=== PATIENT | female | born 1945 | race Two or more races ===

== ENCOUNTER 2024-12-20 18:50 | Inpatient (IN) | payer MEDICARE, MEDICAID ==
[~2024-12-20] VITALS: Ht 157.5 cm; Wt 91.4 kg
[2024-12-20] MEDS: SODIUM CHLORIDE 0.9% 250 ML IV ONE (20:00)
[2024-12-20 20:09] LABS: Hematocrit 24.0 % (36.0-46.0); Hemoglobin 8.2 g/dL (12.2-16.2); Mean Corpuscular Hemoglobin 32.2 pg (28.0-32.0); Mean Corpuscular Volume 94.7 fL (80.0-100.0); Nucleated Red Blood Cells % 0.1 %
[2024-12-20 20:26] LABS: Albumin 3.6 g/dL (3.2-4.8); Alkaline Phosphatase 99 U/L (46-116); Anion Gap 11 (5-15); BUN/Creatinine Ratio 15.2 (10.0-20.0); Blood Urea Nitrogen 22 mg/dL (9-23); Carbon Dioxide 28 mmol/L (20-31); Lipase 48 U/L (12-53); Total Protein 7.9 g/dL (5.7-8.2)
[2024-12-20 20:27] LABS: Bilirubin, Total 0.7 mg/dL (0.2-1.0)
[2024-12-20 21:08] LABS: Urine Protein, UAD 1+ (Negative)
[2024-12-20 21:11] LABS: Alanine Aminotransferase < 9 U/L (7-40); Calcium 8.4 mg/dL (8.7-10.4); Chloride 94 mmol/L (98-107); Glucose 121 mg/dL (74-106); Potassium 3.4 mmol/L (3.5-5.1); Sodium 133 mmol/L (136-145)
--- NOTE | 2024-12-20 21:54 | DVH ---
Exam: CT CT AB PEL WO CON-NO ORAL OR IV History: ABD PX Comparison Study: None Technique: Multidetector spiral CT of the abdomen was performed from lung bases to pubic symphysis. Imaging was performed without IV contrast. Axial, coronal and sagittal multiplanar reformats were ob tained from the axial data set by the technologist. Radiation Dose : 1. Abdomen/Pelvis: CTDIvol 20.52 mGy, DLP 20.52 mGy*cm. Findings: Evaluation of solid organs is limited due to lack of intravenous contrast use. Lung Bases: No acute or significant lung base finding. Heart size is the upper limit of normal. Smal l left pleural effusion. Liver: The liver is normal in size. No focal lesions. Gallbladder and Biliary Tree: Gallbladder is surgically absent. No biliary ductal dilation. Spleen: Unremarkable Pancreas: The pancreas is grossly normal in appearance. Adrenal Glands: Unremarkable Kidneys: No calculi or hydronephrosis. Bladder: Grossly unremarkable for degree of distention. Bowel: The stomach is grossly normal in appearance. Small bowel and colon are normal in caliber and d istribution. The appendix is not visualized; however, no secondary findings of acute appendicitis id entified. 7 x 6.7 cm loculated fluid collection in the central mesentery /abdomen. Ascites: Absent Lymphadenopathy: No mesenteric, retroperitoneal or periportal lymphadenopathy. Abdominal Wall and Mesentery: Retroperitoneal lipomatosis. Fat containing ventral hernia. Vasculature: Advanced calcific atherosclerotic plaques. Pelvic Organs: Unremarkable Musculoskeletal: No aggressive focal bony lesions, acute fractures or dislocation. Partially imaged l eft femoral greta and dynamic compression screw. IMPRESSION: 1. Loculated fluid collection in the central abdomen/mesentery, probably sequela of previous infectio n. Recommend MRI. Surgical consultation is needed. Radiation optimization: All CT scans at this facility use at least one of these dose optimization alvaro hniques: automated exposure control mA and/or kV adjustment per patient size (includes targeted exam s where dose is matched to clinical indication) or iterative reconstruction.
--- NOTE | 2024-12-20 22:12 | ED.PDOC ---
GI ASSESSMENT HPI Comments 79-YEAR-OLD FEMALE PRESENTS TO THE ED WITH HER SON C/C OF ABD PAIN/DISTENTION X2 WEEKS. MOM STATES PATIENT HAS BEEN SEEN IN THE ER BEFORE HAD A CT WITH NO ABNORMAL FINDINGS. SON STATES PAIN HAS BEEN PROGRESSIVELY GETTING WORSE OVER THE PAST SEVERAL DAYS ALONG WITH ABDOMINAL FULLNESS AND BLOATING. PT REPORTS NAUSEA DENIES ANY EMESIS. PT REPORTS SHE HAD A BM YESTERDAY- NORMAL IN CONSISTENCY DENIES ANY BLOOD IN STOOL. REPORTS NO KNOWN FEVERS, CHILLS, CHEST PAIN, SHORTNESS OF BREATH, DIZZINESS, DIFFICULTY BREATHING. Chief Complaint: Abdominal Pain Time Seen by MD: 19:39 Reviewed Notes: Nurses Notes, Medications, Allergies Allergies: Coded Allergies: NO KNOWN ALLERGIES (Unverified , 12/21/24) Information Source: Patient Mode of Arrival: Ambulatory Past Medical History PAST MEDICAL HISTORY: Denies Surgical History: Denies all surgeries PLAYGROUND DIRECTOR History: No Pertinent PLAYGROUND DIRECTOR History Family History Family History: Reviewed,noncontributory to illness Social History Smoker: Non-Smoker Alcohol: Denies ETOH Use Drugs: Denies Drug Use All Other Systems: Reviewed and Negative (SEE HPI) Physical Exam General Appearance: No Apparent Distress, Normal HEENT: Pharynx Normal Neck: Full Range of Motion, Non-Tender Respiratory: Lungs Clear, No Respiratory Distress, Normal Breath Sounds Cardiovascular: No Edema, No JVD, No Murmur, No Gallop, Normal Peripheral Pulses, Regular Rate/Rhythm Breast Exam: Deferred Gastrointestinal: Diffuse (TENDERNESS ), Distended, No Organomegaly, No Pulsatile Mass, Soft Genitalia: Deferred Pelvic: Deferred Rectal: Deferred Extremities: Normal capillary refill, Normal range of motion, No pedal edema Musculoskeletal : Apperance: Normal Neurologic: Alert, No Motor Deficits, Normal Affect, Normal Mood, No Sensory Deficits Cerebellar Function: Normal Reflexes: NOT DONE Skin: Dry, Normal Color, Warm Lymphatic: No Adenopathy Was a procedure done? Was a procedure done?: No GI differential Dx Differential Diagnosis: Constipation, Diverticular disease, Ectopic , Gastritis/PUD, Mass X-Ray, Labs, Meds, VS Vital Signs Date Time Temp Pulse Resp B/P (MAP) Pulse Ox O2 Delivery O2 Flow Rate FiO2 12/20/24 22:30 84 18 154/82 12/20/24 21:49 98.0 70 18 148/68 (94) 96 98.0 12/20/24 18:51 97.5 75 22 119/51 91 97.5 Lab Test 12/20/24 22:55 12/20/24 20:26 12/20/24 19:59 Range/Units Lactic Acid Level 1.0 0.4-2.0 mmol/L Urine Color Light-yellow Yellow Urine Clarity Clear Clear Urine pH 6.5 5.0-9.0 Urine Specific [place] 1.009 1.001-1.035 Urine Protein 1+ H Negative Urine Ketones Negative Negative Urine Blood Negative Negative /uL Urine Nitrite Negative Negative Urine Bilirubin Negative Negative Urine Urobilinogen 2 H Negative mg/dL Urine Leukocyte Esterase 2+ Negative /uL Urine RBC 2 0 - 4 /hpf Urine Microscopic WBC 5 0-5 /HPF Urine Squamous Epithelial Cells Few <5 /hpf Urine Bacteria Few H None Seen /hpf Urine Glucose Normal Normal mg/dL White Blood Count 6.8 4.4-10.8 10^3/uL Red Blood Count 2.54 L 4.0-5.20 10^6/uL Hemoglobin 8.2 L 12.2-16.2 g/dL Hematocrit 24.0 L 36.0-46.0 % Mean Corpuscular Volume 94.7 80.0-100.0 fL Mean Corpuscular Hemoglobin 32.2 H 28.0-32.0 pg Mean Corpuscular Hemoglobin Concent 34.0 32.0-36.0 g/dL Red Cell Distribution Width 17.0 H 11.8-14.3 % Platelet Count 186 140-450 10^3/uL Mean Platelet Volume 9.6 6.9-10.8 fL Neutrophils (%) (Auto) 77.0 37.0-80.0 % Lymphocytes (%) (Auto) 10.7 10.0-50.0 % Monocytes (%) (Auto) 9.2 0.0-12.0 % Eosinophils (%) (Auto) 2.4 0.0-7.0 % Basophils (%) (Auto) 0.7 0.0-2.0 % Neutrophils # (Auto) 5.3 1.6-8.6 10 ^3/uL Lymphocytes # (Auto) 0.7 0.4-5.4 10 ^3/uL Monocytes # (Auto) 0.6 0-1.3 10 ^3/uL Eosinophils # (Auto) 0.2 0-0.8 10 ^3/uL Basophils # (Auto) 0 0-0.2 10 ^3/uL Nucleated Red Blood Cells 0.1 % Sodium Level 133 L 136-145 mmol/L Potassium Level 3.4 L 3.5-5.1 mmol/L Chloride Level 94 L 98-107 mmol/L Carbon Dioxide Level 28 20-31 mmol/L Anion Gap 11 5-15 Blood Urea Nitrogen 22 9-23 mg/dL Creatinine 1.45 H 0.550-1.02 mg/dL Glomerular Filtration Rate Calc 36 >90 mL/min BUN/Creatinine Ratio 15.2 10.0-20.0 Serum Glucose 121 H 74-106 mg/dL Calcium Level 8.4 L 8.7-10.4 mg/dL Total Bilirubin 0.7 0.2-1.0 mg/dL Aspartate Amino Transferase (AST) 12 L 13-40 U/L Alanine Aminotransferase (ALT) < 9 7-40 U/L Alkaline Phosphatase 99 46-116 U/L Total Protein 7.9 5.7-8.2 g/dL Albumin 3.6 3.2-4.8 g/dL Lipase 48 12-53 U/L Current Medications Medications (Trade) Dose Ordered Sig/Juan Francisco Route Start Time Stop Time Status Last Admin Sodium Chloride 250 ml @ 1,000 mls/hr Q15M ONCE IV 12/20/24 20:00 12/20/24 20:14 DC 12/20/24 20:00 Ondansetron HCl (Zofran) 4 mg ONCE ONCE IV 12/20/24 20:00 12/20/24 20:01 DC 12/20/24 22:30 Ciprofloxacin 200 ml @ 200 mls/hr ONCE ONCE IV 12/20/24 22:30 12/20/24 23:29 DC 12/20/24 22:30 Metronidazole 100 ml @ 100 mls/hr ONCE ONCE IV 12/20/24 22:30 12/20/24 23:29 DC 12/20/24 22:30 Morphine Sulfate 2 mg ONCE ONCE IV 12/20/24 22:30 12/20/24 22:31 DC 12/20/24 22:30 X-Ray, Labs, Meds, VS Comment IMPRESSION: 1. Loculated fluid collection in the central abdomen/mesentery, probably sequela of previous infection. Recommend MRI. Surgical consultation is nee Surgical consult with Dr. Bowman, per Dr. Gasca, admit and he will consult in a.m. patient is stable for admission at this time. CBC CMP within normal limitS, LACTIC ACID 1.0. We will start patient on Cipro and Flagyl, pain and nausea control, MRI in the morning for further evaluation of mesentery fluid, admission placed for hospitalist. Time of 1ST Reevaluation: 19:39 Reevaluation 1ST: Unchanged Time of 2ND Reevaluation: 22:05 Reevaluation 2ND: Unchanged Patient Education/Counseling: Diagnosis, Treatment, Prognosis, Need For Follow Up Family Education/Counseling: Diagnosis, Treatment, Prognosis, Need For Follow Up SEPSIS Sepsis Screen Date sepsis recognized/suspect: Dec 20, 2024 Time Sepsis recognized/suspect: 1853 Recent Procedure: No On Antibiotic Therapy: No Respiratory Rate >20: No Heart Rate >90: No Temp<36 C (96.8 F) or >38.3 C: No SBP <90 or MAP <65 mmHG: No New Acute Mental Status Change: No Is the patient on CPAP, BIPAP,: No Physician Orders Ct Ab Pel Wo Con-No Oral Or Iv (12/20/24 19:45) Heplock Iv (12/20/24 ) * Surgical Consult (12/20/24 ) Blood Culture (12/20/24 22:16) Mri Abd & Plevis W/Wo Cont (12/20/24 22:52) Vital Signs Date Time Temp Pulse Resp B/P (MAP) Pulse Ox O2 Delivery O2 Flow Rate FiO2 12/20/24 22:30 84 18 154/82 12/20/24 21:49 98.0 70 18 148/68 (94) 96 98.0 12/20/24 18:51 97.5 75 22 119/51 91 97.5 Laboratory Tests Test 12/20/24 19:59 12/20/24 22:55 White Blood Count 6.8 10^3/uL (4.4-10.8) Lactic Acid Level 1.0 mmol/L (0.4-2.0) Medications Medications Dose Ordered Sig/Juan Francisco Route Start Time Stop Time Status Last Admin Dose Admin Ciprofloxacin 200 ml @ 200 mls/hr ONCE ONCE IV 12/20/24 22:30 12/20/24 23:29 DC 12/20/24 22:30 Metronidazole 100 ml @ 100 mls/hr ONCE ONCE IV 12/20/24 22:30 12/20/24 23:29 DC 12/20/24 22:30 Morphine Sulfate 2 mg ONCE ONCE IV 12/20/24 22:30 12/20/24 22:31 DC 12/20/24 22:30 Ondansetron HCl 4 mg ONCE ONCE IV 12/20/24 20:00 12/20/24 20:01 DC 12/20/24 22:30 Sodium Chloride 250 ml @ 1,000 mls/hr Q15M ONCE IV 12/20/24 20:00 12/20/24 20:14 [place] 12/20/24 20:00 Departure 1 Departure Time of Disposition: 22:05 Impression: Primary Impression: Nonspecific mesenteric adenitis Additional Impressions: Intraabdominal fluid collection UTI (urinary tract infection) Qualified Codes: N30.00 - Acute cystitis without hematuria Disposition: 04 [facility] Condition: Stable Discharged With: Relative Critical Care Note Critical Care Time?: No Stability Stability form required: SHWETA Pope Dec 20, 2024 22:12
[2024-12-20] MEDS: CIPROFLOXACIN 400MG/200ML 200 ML IV ONE (22:30)
[2024-12-20] MEDS: MORPHINE SULFATE INJ 2 MG/ml SYRG IV ONE (22:30)
[2024-12-20] MEDS: ONDANSETRON HCL 4 MG/2 ML VIAL IV ONE (22:30)
[2024-12-21] VITALS (12 sets, daily range): BP systolic 133–166; BP diastolic 56–86; PULSE 61–80; RESP 10–20; TEMP 97.5–98.4; O2SAT 95–100
[2024-12-21] MEDS ORDERED: DOCUSATE SOD 100 MG CAP PO PRN (03:00)
[2024-12-21] MEDS: POTASSIUM EFFERVESENT TAB 25 MEQ GT ONE (04:23)
[2024-12-21 04:48] LABS: Hemoglobin 8.0 g/dL (12.2-16.2); Mean Corpuscular Volume 94.1 fL (80.0-100.0)
[2024-12-21 04:53] LABS: Hematocrit 23.4 % (36.0-46.0); Mean Corpuscular Hemoglobin 32.3 pg (28.0-32.0); Nucleated Red Blood Cells % 0.3 %
[2024-12-21] MEDS: ONDANSETRON HCL 4 MG/2 ML VIAL IV PRN (04:54)
[2024-12-21] MEDS: MORPHINE SULFATE INJ 2 MG/ml SYRG IV PRN (04:55)
[2024-12-21 04:56] LABS: Alkaline Phosphatase 97 U/L (46-116); Anion Gap 12 (5-15); BUN/Creatinine Ratio 13.9 (10.0-20.0); Blood Urea Nitrogen 19 mg/dL (9-23); Carbon Dioxide 27 mmol/L (20-31); Glucose 102 mg/dL (74-106); Total Protein 7.8 g/dL (5.7-8.2)
[2024-12-21 04:57] LABS: Albumin 3.6 g/dL (3.2-4.8); Bilirubin, Total 0.6 mg/dL (0.2-1.0)
[2024-12-21 05:13] LABS: Alanine Aminotransferase < 9 U/L (7-40); Calcium 8.6 mg/dL (8.7-10.4); Chloride 96 mmol/L (98-107); Potassium 3.3 mmol/L (3.5-5.1); Sodium 135 mmol/L (136-145)
[2024-12-21] MEDS ORDERED: GLIP5TAB21 PO (07:22)
[2024-12-21] MEDS ORDERED: INSLISPI SC (07:22)
[2024-12-21] MEDS ORDERED: CALC1TAB92 PO (07:22)
[2024-12-21] MEDS ORDERED: FAMO20TA10 PO (07:22)
[2024-12-21] MEDS ORDERED: METO-289 PO (07:22)
[2024-12-21] MEDS ORDERED: BENA40TA71 PO (07:22)
[2024-12-21] MEDS ORDERED: POTA-36 PO (07:22)
[2024-12-21] MEDS ORDERED: OMEG1205 PO (07:22)
[2024-12-21] MEDS ORDERED: FURO20TA3 PO (07:22)
[2024-12-21] MEDS ORDERED: DILT-29 PO (07:22)
[2024-12-21] MEDS: LACTATED RINGER'S 1,000 ML IV SCH (07:28)
--- NOTE | 2024-12-21 08:18 | DVHHPRES ---
History of Present Illness Resident Creating Document: NATA NASH RESIDENT History of Present Illness Ms. Valenzuela, a 79-year-old female presents to the ED with her son for abdominal pain and distention for 2 weeks, which has progressively worsened over the past several days along with abdominal fullness and bloating. The pain is reported at 8/10 in intensity, radiating to the back and increased with walking and movement, and decreases with rest. She reports nausea but denies vomiting, fever, chills, chest pain, dizziness. He also reports shortness of breath, dizziness, intentional weight loss of 23 lb use since the last several months. She had a normal bowel movement on without blood is normally constipated.. The patient was previously evaluated in the ER with a CT scan that showed no abnormalities. She arrived ambulatory and provided history with assistance from her son. Past Medical History: Unknown, based on chart review, DJD, osteoarthritis, essential hypertension, atrial fibrillation, COPD, diabetes mellitus, venous insufficiency. 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 comes from home lives with family/son. Home Medications: Acetaminophen Extra Strength 500 mg tab, Lidocaine 5% patch, Benazepril HCl 40 mg tab, Hydrocodone/Acetaminophen 5-325 mg tab, Ondansetron ODT 4 mg tablets, Triamterene 37.5 mg/HCTZ 25 mg cap, Dilt-XR 120 mg cap, Doxycycline Hyclate 100 mg cap, Benzonatate 200 mg cap, Albuterol Sulfate HFA 108 mcg/act inhaler, Promethazine DM syrup, Xarelto 20 mg tab, Metformin HCl 1000 mg tab. Review of Systems Constitutional: Yes: Weakness; No: Fever, Chills, Sweats, Malaise, Other Eyes: No: Pain, Vision change, Conjunctivae inflammation, Eyelid inflammation, Other, Redness ENT: No: Ear pain, Ear discharge, Nose pain, Nose discharge, Nose congestion, Mouth pain, Mouth swelling, Throat pain, Throat swelling, Other Respiratory: Shortness of breath; No: Cough, Dry, SOB with excertion, Wheezing, Hemoptysis, Pleuritic Pain, Sputum, Wheezing, Other Cardiovascular: No: Chest Pain, Palpitations, Orthopnea, Paroxysmal Noc. Dyspnea, Edema, Lt Headedness, Other Gastrointestinal: Abdominal Pain, Constipation Genitourinary: No Dysuria, No Frequency, No Incontinence, No Hematuria, No Retention, No Other Musculoskeletal: No: other, neck pain, shoulder pain, arm pain, back pain, hand pain, leg pain, foot pain Skin: No: Rash, Lesions, Jaundice, Bruising, Other Neurological: No: Weakness, Numbness, Incoordination, Change in speech, Confu valentin, Seizures, Other Allergies: Coded Allergies: NO KNOWN ALLERGIES (Unverified , 12/21/24) Medications Current Medications Medications Dose Ordered Sig/Juan Francisco Route Start Time Stop Time Status Last Admin Dose Admin Ondansetron HCl 4 mg Q4HP PRN IV 12/21/24 03:00 12/21/24 04:54 4 MG Docusate Sodium 100 mg BIDPRN PRN PO 12/21/24 03:00 Morphine Sulfate 2 mg Q4HPRN PRN IV 12/21/24 03:00 12/21/24 04:55 2 MG Lactated Ringer's 1,000 ml @ 75 mls/hr [id number] IV 12/21/24 07:00 12/21/24 07:28 75 MLS/HR Exam Vital Signs Vital Signs Date Time Temp Pulse Resp B/P (MAP) Pulse Ox O2 Delivery O2 Flow Rate FiO2 12/21/24 07:30 98.1 68 18 151/52 (85) 96 98.1 12/21/24 07:30 Nasal Cannula* 3 32 Exam General: Patient alert and oriented in person, place and time. Patient following commands. In moderate distress HEENT: Normocephalic, atraumatic, moist mucous membranes Respiratory/pulmonary: Clear lungs bilaterally, vesicular murmurs present in almost all lung alfonso, no associated crackles or wheezes. Cardiovascular: Normal heart sounds S1 and S2 with no associated murmurs Abdomen: Abdominal distention, diffuse abdominal tenderness, normal bowel sounds Extremities: There is no peripheral edema present at the lower extremities. Peripheral Pulses: 3+ Radial (R). 3+ Radial (L). 3+ Dorsalis pedis (R). 3+ Dorsalis pedis(L) Skin: No rashes or pruritus, there is no sacral edema present at this time. Neurological: Intact cranial nerves with no focal neurologic deficits Psych/mood: Depressed, crying Labs/Xrays Labs Test 12/21/24 03:47 12/20/24 22:55 12/20/24 20:26 12/20/24 19:59 Range/Units White Blood Count 5.6 4.4-10.8 10^3/uL Red Blood Count 2.48 L 4.0-5.20 10^6/uL Hemoglobin 8.0 L 12.2-16.2 g/dL Hematocrit 23.4 L 36.0-46.0 % Mean Corpuscular Volume 94.1 80.0-100.0 fL Mean Corpuscular Hemoglobin 32.3 H 28.0-32.0 pg Mean Corpuscular Hemoglobin Concent 34.3 32.0-36.0 g/dL Red Cell Distribution Width 16.8 H 11.8-14.3 % Platelet Count 170 140-450 10^3/uL Mean Platelet Volume 9.6 6.9-10.8 fL Neutrophils (%) (Auto) 70.9 37.0-80.0 % Lymphocytes (%) (Auto) 16.5 10.0-50.0 % Monocytes (%) (Auto) 8.3 0.0-12.0 % Eosinophils (%) (Auto) 3.6 0.0-7.0 % Basophils (%) (Auto) 0.7 0.0-2.0 % Neutrophils # (Auto) 3.9 1.6-8.6 10 ^3/uL Lymphocytes # (Auto) 0.9 0.4-5.4 10 ^3/uL Monocytes # (Auto) 0.5 0-1.3 10 ^3/uL Eosinophils # (Auto) 0.2 0-0.8 10 ^3/uL Basophils # (Auto) 0 0-0.2 10 ^3/uL Nucleated Red Blood Cells 0.3 % Sodium Level 135 L 136-145 mmol/L Potassium Level 3.3 L 3.5-5.1 mmol/L Chloride Level 96 L 98-107 mmol/L Carbon Dioxide Level 27 20-31 mmol/L Anion Gap 12 5-15 Blood Urea Nitrogen 19 9-23 mg/dL Creatinine 1.37 H 0.550-1.02 mg/dL Glomerular Filtration Rate Calc 39 >90 mL/min BUN/Creatinine Ratio 13.9 10.0-20.0 Serum Glucose 102 74-106 mg/dL Calcium Level 8.6 L 8.7-10.4 mg/dL Total Bilirubin 0.6 0.2-1.0 mg/dL Aspartate Amino Transferase (AST) 11 L 13-40 U/L Alanine Aminotransferase (ALT) < 9 7-40 U/L Alkaline Phosphatase 97 46-116 U/L Total Protein 7.8 5.7-8.2 g/dL Albumin 3.6 3.2-4.8 g/dL Lactic Acid Level 1.0 0.4-2.0 mmol/L Urine Color Light-yellow Yellow Urine Clarity Clear Clear Urine pH 6.5 5.0-9.0 Urine Specific [place] 1.009 1.001-1.035 Urine Protein 1+ H Negative Urine Ketones Negative Negative Urine Blood Negative Negative /uL Urine Nitrite Negative Negative Urine Bilirubin Negative Negative Urine Urobilinogen 2 H Negative mg/dL Urine Leukocyte Esterase 2+ Negative /uL Urine RBC 2 0 - 4 /hpf Urine Microscopic WBC 5 0-5 /HPF Urine Squamous Epithelial Cells Few <5 /hpf Urine Bacteria Few H None Seen /hpf Urine Glucose Normal Normal mg/dL Lipase 48 12-53 U/L SEPSIS Sepsis Screen Date sepsis recognized/suspect: Dec 20, 2024 Time Sepsis recognized/suspect: 1853 Recent Procedure: No On Antibiotic Therapy: No Respiratory Rate >20: No Heart Rate >90: No Temp<36 C (96.8 F) or >38.3 C: No SBP <90 or MAP <65 mmHG: No New Acute Mental Status Change: No Is the patient on CPAP, BIPAP,: No Physician Orders Admit (12/21/24 02:54) Allergies (12/21/24 02:54) Code Status (12/21/24 02:54) Ondansetron Hcl (Zofran) (12/21/24 03:00) Docusate Sodium Capsule (Colace Capsule) (12/21/24 03:00) Npo (Nothing By Mouth) Diet (12/21/24 Breakfast) Condition: Serious (12/21/24 02:54) Bedrest With Bathroom Privileg (12/21/24 02:54) Morphine Sulfate Injection (12/21/24 03:00) Lactated Ringer's (12/21/24 07:00) Prothrombin Time W/ Inr (12/21/24 06:58) Covid19 Antigen Smita (12/21/24 ) Drug Screen (12/21/24 06:58) Rapid Influenza A&B (12/21/24 06:58) Vital Signs Date Time Temp Pulse Resp B/P (MAP) Pulse Ox O2 Delivery O2 Flow Rate FiO2 12/21/24 07:30 98.1 68 18 151/52 (85) 96 98.1 12/21/24 07:30 61 10 100 Nasal Cannula* 3 32 12/21/24 05:52 60 20 124/55 12/21/24 05:00 97.5 78 18 133/56 (81) 95 97.5 12/21/24 04:55 68 20 121/53 Laboratory Tests Test 12/20/24 22:55 12/21/24 03:47 Lactic Acid Level 1.0 mmol/L (0.4-2.0) White Blood Count 5.6 10^3/uL (4.4-10.8) Medications Medications Dose Ordered Sig/Juan Francisco Route Start Time Stop Time Status Last Admin Dose Admin Ciprofloxacin 200 ml @ 200 mls/hr ONCE ONCE IV 12/20/24 22:30 12/20/24 23:29 DC 12/20/24 22:30 200 MLS/HR Lactated Ringer's 1,000 ml @ 75 mls/hr [id number] IV 12/21/24 07:00 12/21/24 07:28 75 MLS/HR Metronidazole 100 ml @ 100 mls/hr ONCE ONCE IV 12/20/24 22:30 12/20/24 23:29 DC 12/20/24 22:30 100 MLS/HR Morphine Sulfate 2 mg ONCE ONCE IV 12/20/24 22:30 12/20/24 22:31 DC 12/20/24 22:30 2 MG Morphine Sulfate 2 mg Q4HPRN PRN IV 12/21/24 03:00 12/21/24 04:55 2 MG Ondansetron HCl 4 mg Q4HP PRN IV 12/21/24 03:00 12/21/24 04:54 4 MG Assessment/Plan Assessment/Plan #Acute abdominal pain With distention: examination nonsurgical, Negative for lactate, lipase negative #acute hypoxic respiratory failure: Baseline no oxygen, came in has a 2-3 days of nasal cannula oxygen, wean as tolerated. Target SPO2 more than 94%. Check for COVID, influenza, CXR, MRSA and sputum culture. Continue oxygen wean as tolerated. Check for toxicology. #UTI noted on urinalysis: Check for urine culture, no previous culture noted, came from the home, #Normocytic anemia: No known baseline, elevated RDW concerning for iron- deficiency anemia check for a ferritin, iron panel. Rule out GI bleed check for PT PT INR. IV ppi to continue,clemente #possible post surgical additions/ peritonitis/ abscess: Surgical consult, due to KODAK, holding CT abdomen pelvis with IV contrast for now, we will defer to the surgical team for possible intra abdominal MRI evaluation. Given surgery, we will cover for g positives as well along with a g negatives. Continue workup, close monitoring. High-risk of #mild hypokalemia: 3.4, 3.3: Replenished, follow up closely. #Mild hypovolemic hyponatremia: Close follow up, replenish IV fluids. Trend BNP #KODAK likely due to VMN : Continue gentle hydration, avoid nephrotoxic close follow up. #grade 2 obesity: BMI 35.9 #high likelihood of baseline CKD, unknown stage. #history of VTE/ AFib, patient on Xarelto 20 mg daily: Continue telemetry, high- risk of decompensation is due to the advanced age. #secondary hypercoagulable state secondary due to NOAC/DOAC, PPI IV for GI prophylaxis: Avoid aspirin, antiplatelet, NSAID use. #known history of diabetes mellitus type 2: At home patient on metformin 1000 mg b.i.d.. hold, check for HbA1c, liberal management with blood glucose target in-hospital for 140-180 as per NICE sugar trial. #COPD/asthma: nebs Albuterol, no noted acute exacerbation, #history of essential hypertension: Patient on diltiazem XR 120 mg daily. Along with benazepril 40 mg daily. target blood pressure 130/80 or below. Given advanced age we will avoid aggressive hypertension management, liberal management to continue. #Chronic low back pain: Likely age-related osteoarthritis, DJD with as necessary lidocaine 5%. Denies any active pain, if patient complains of such restart home medications. No distal neurovascular compromise noted. , PT for stability concerns. #history of breast cancer with left mastectomy, limited history: As per the family not on any chemo therapy in present or past. High-risk of thromboembolism #unintentional weight loss: As per patient more than 23 lb of weight loss within last 6 months, high concern for recurrence of carcinoma versus age- related functional decline versus nutritional deficiency. Dietary counseling, high-protein diet. PUD prophylaxis: protonix 40mg IV continue DVT prophylaxis: Restart home Xarelto 20 mg daily. Barriers to discharge: Medical diagnosis and management in progress. Patient lives with family. Independent/need supportive device/wheelchair/person support for ADL. PT and SW consult as needed. Overall advanced age poor prognosis secondary due to multiorgan disease. PCP: Dr. Mohan. Specialist Relevant To Admission: General surgery, consulted for further planning and management, patient is a poor surgical candidate due to advanced age, and multi system disease. Case discussed with Dr. Moore. Code Status: Full Code. Discussion needed total 37 minutes bedside. Patient is poor historian, discussed with son. Plan discussed with: Patient, Son My Orders Orders - NATA NASH RESIDENT Procedure Category Date Status Time Admit ADMIT 12/21/24 Transmitted 02:54 Allergies ALAN 12/21/24 In Process 02:54 Code Status CODE 12/21/24 Transmitted 02:54 Ondansetron Hcl PHA 12/21/24 In Process (Zofran) 03:00 Docusate Sodium PHA 12/21/24 In Process Capsule (Colace 03:00 Npo (Nothing By DIET 12/21/24 Transmitted Mouth) Diet Breakfast Condition: Serious ALAN 12/21/24 In Process 02:54 Bedrest With Bathroom ALAN 12/21/24 In Process Privileg 02:54 Morphine Sulfate PHA 12/21/24 In Process Injection 03:00 Lactated Ringer's PHA 12/21/24 In Process 07:00 Prothrombin Time W/ LAB 12/21/24 Logged INR 06:58 Covid19 Antigen Smita LAB 12/21/24 Logged Drug Screen LAB 12/21/24 In Process 06:58 Rapid Influenza A&B LAB 12/21/24 Logged 06:58 Date of Service: Dec 21, 2024 Billing Provider: ALICE MOORE MD Common Visit Codes: 00101-RGGXDWH INP/OBS CARE (HIGH) Secondary Visit Codes: 51511-CKVUGNAW CARE PLAN 30 MINUTES NATA NASH RESIDENT Dec 21, 2024 08:18 ADRIANA ABREU RESIDENT Dec 21, 2024 09:32
[2024-12-21 09:03] LABS: Amphetamine Screen, Urine Neg (NEGATIVE); Barbiturate Scree,Urine Neg (NEGATIVE); Benzodiazephine Screen, Urine Neg (NEGATIVE); Cannabinoid Screen, Urine Neg (NEGATIVE); Cocaine Screen, Urine Neg (NEGATIVE); Opiate Scree,Urine Neg (NEGATIVE); Phencyclidine Screen, Urine Neg (NEGATIVE)
[2024-12-21 09:18] LABS: COVID19 ANTIGEN SOFIA FIA NEGATIVE (NEGATIVE)
[2024-12-21] MEDS ORDERED: ALBUTEROL SULF 2.5 MG/0.5ML(0.5%) NEB SOLN NEB PRN (09:45)
[2024-12-21 09:46] LABS: INR 1.35 (0.9-1.15); Prothrombin Time 13.9 sec (9.3-11.8)
[2024-12-21] MEDS ORDERED: PANTOPRAZOLE 40 MG/10 ML VIAL INJ IV SCH (10:00)
[2024-12-21] MEDS: PANTOPRAZOLE 40 MG/10 ML VIAL INJ IV SCH (10:00)
[2024-12-21 10:10] LABS: Partial Thromboplastin Time 34.5 SEC (24.5-34.5)
--- NOTE | 2024-12-21 10:11 | DVH ---
CHEST RADIOGRAPH Indication: rule out thoracic pathology, aspiration vs cap pneumonia Technique: Single frontal view of the chest was obtained Comparison: None FINDINGS: Lines and Tubes: None Lungs: No focal consolidation. Mild pulmonary vascular congestion and interstitial edema. Pleura: No effusion. No pneumothorax. Cardiomediastinal contours: Mild cardiomegaly. Calcified aortic arch. Bones: No acute osseous abnormality. IMPRESSION: 1. Mild cardiomegaly. 2. Mild pulmonary vascular congestion and interstitial edema.
--- NOTE | 2024-12-21 10:49 | DVHINCON2 ---
Date of service: Dec 21, 2024 Allergies: Coded Allergies: NO KNOWN ALLERGIES (Unverified , 12/21/24) Home Meds Reported Medications Insulin Lispro (Human) (Humalog) 100 Unit/Ml Inj, 100 UNIT SC, INJ 12/21/24 Glipizide (Glipizide) 5 Mg Tab, 1 TAB PO DAILY, #60 TAB 3 Refills 12/21/24 Furosemide (Furosemide) 20 Mg Tab, 1 TAB PO TID, #90 TAB 1 Refill 12/21/24 Potassium Chloride (POTASSIUM CHLORIDE CR) 10 Meq Tb, 1 TAB PO DAILY, #30 TAB 5 Refills 12/21/24 [place]-3 Fatty Acids ([place]-3 Epa Fish Oil) 1,205 Mg Cap, 1205 MG PO, CAP 12/21/24 Calcium Carbonate (Calcium) 600 Mg Tab, 600 MG PO DAILY, TAB 12/21/24 Famotidine (PEPCID TABLET) 20 Mg Tb, 1 TAB PO BID, #60 TAB 5 Refills 12/21/24 Diltiazem Hcl (DILTIAZEM HCL ER) 240 Mg Cap, 1 CAP PO DAILY, #30 CAP 5 Refills 12/21/24 Benazepril Hcl (Benazepril Hcl) 40 Mg Tab, 1 TAB PO DAILY, #30 TAB 5 Refills 12/21/24 Metoprolol Succinate (Metoprolol Succinate Er) 50 Mg Tab, 1 TAB PO DAILY, #30 TAB 5 Refills 12/21/24 Current Medications Current Medications Medications (Trade) Dose Ordered Sig/Juan Francisco Route PRN Reason Start Time Stop Time Status Last Admin Ondansetron HCl (Zofran) 4 mg Q4HP PRN IV NAUSEA / VOMITING 12/21/24 03:00 12/21/24 04:54 Docusate Sodium (Colace Capsule) 100 mg BIDPRN PRN PO FOR CONSTIPATION 12/21/24 03:00 Morphine Sulfate 2 mg Q4HPRN PRN IV SEVERE PAIN (7-10 PAIN SCALE) 12/21/24 03:00 12/21/24 04:55 Lactated Ringer's 1,000 ml @ 75 mls/hr [id number] IV 12/21/24 07:00 12/21/24 07:28 Pantoprazole Sodium (Protonix) 40 mg DAILY IV 12/21/24 10:00 UNV Ceftriaxone Sodium 50 ml @ 100 mls/hr DAILY@09 IV 12/22/24 09:00 Metronidazole 100 ml @ 100 mls/hr Q8H IV 12/21/24 19:00 Rivaroxaban (Xarelto Tablet) 20 mg QPM PO 12/21/24 18:00 Albuterol (Ventolin Medneb) 2.5 mg Q6HPRN PRN NEB SHORTNESS OF BREATH 12/21/24 09:45 Pantoprazole Sodium (Protonix) 40 mg DAILY IV 12/21/24 10:00 Vital Signs Vital Signs Date Time Temp Pulse Resp B/P (MAP) Pulse Ox O2 Delivery O2 Flow Rate FiO2 12/21/24 07:30 98.1 68 18 151/52 (85) 96 98.1 12/21/24 07:30 Nasal Cannula* 3 32 Labs/Diagnostic Data Labs Test 12/21/24 09:15 12/21/24 07:46 12/21/24 07:40 12/21/24 03:47 Range/Units Prothrombin Time 13.9 H 9.3-11.8 sec Prothrombin Time INR 1.35 H 0.9-1.15 Activated Partial Thromboplast Time 34.5 24.5-34.5 SEC Influenza Type A Antigen Negative Negative Influenza Type B Antigen Negative Negative SARS-CoV-2 Antigen (Rapid) Negative NEGATIVE White Blood Count 5.6 4.4-10.8 10^3/uL Red Blood Count 2.48 L 4.0-5.20 10^6/uL Hemoglobin 8.0 L 12.2-16.2 g/dL Hematocrit 23.4 L 36.0-46.0 % Mean Corpuscular Volume 94.1 80.0-100.0 fL Mean Corpuscular Hemoglobin 32.3 H 28.0-32.0 pg Mean Corpuscular Hemoglobin Concent 34.3 32.0-36.0 g/dL Red Cell Distribution Width 16.8 H 11.8-14.3 % Platelet Count 170 140-450 10^3/uL Mean Platelet Volume 9.6 6.9-10.8 fL Neutrophils (%) (Auto) 70.9 37.0-80.0 % Lymphocytes (%) (Auto) 16.5 10.0-50.0 % Monocytes (%) (Auto) 8.3 0.0-12.0 % Eosinophils (%) (Auto) 3.6 0.0-7.0 % Basophils (%) (Auto) 0.7 0.0-2.0 % Neutrophils # (Auto) 3.9 1.6-8.6 10 ^3/uL Lymphocytes # (Auto) 0.9 0.4-5.4 10 ^3/uL Monocytes # (Auto) 0.5 0-1.3 10 ^3/uL Eosinophils # (Auto) 0.2 0-0.8 10 ^3/uL Basophils # (Auto) 0 0-0.2 10 ^3/uL Nucleated Red Blood Cells 0.3 % Sodium Level 135 L 136-145 mmol/L Potassium Level 3.3 L 3.5-5.1 mmol/L Chloride Level 96 L 98-107 mmol/L Carbon Dioxide Level 27 20-31 mmol/L Anion Gap 12 5-15 Blood Urea Nitrogen 19 9-23 mg/dL Creatinine 1.37 H 0.550-1.02 mg/dL Glomerular Filtration Rate Calc 39 >90 mL/min BUN/Creatinine Ratio 13.9 10.0-20.0 Serum Glucose 102 74-106 mg/dL Hemoglobin A1c 7.2 H <5.7 % A1C Calcium Level 8.6 L 8.7-10.4 mg/dL Total Bilirubin 0.6 0.2-1.0 mg/dL Aspartate Amino Transferase (AST) 11 L 13-40 U/L Alanine Aminotransferase (ALT) < 9 7-40 U/L Alkaline Phosphatase 97 46-116 U/L Total Protein 7.8 5.7-8.2 g/dL Albumin 3.6 3.2-4.8 g/dL Test 12/20/24 22:55 12/20/24 20:26 12/20/24 19:59 Range/Units Lactic Acid Level 1.0 0.4-2.0 mmol/L Urine Color Light-yellow Yellow Urine Clarity Clear Clear Urine pH 6.5 5.0-9.0 Urine Specific [place] 1.009 1.001-1.035 Urine Protein 1+ H Negative Urine Ketones Negative Negative Urine Blood Negative Negative /uL Urine Nitrite Negative Negative Urine Bilirubin Negative Negative Urine Urobilinogen 2 H Negative mg/dL Urine Leukocyte Esterase 2+ Negative /uL Urine RBC 2 0 - 4 /hpf Urine Microscopic WBC 5 0-5 /HPF Urine Squamous Epithelial Cells Few <5 /hpf Urine Bacteria Few H None Seen /hpf Urine Glucose Normal Normal mg/dL Urine Opiates Screen Neg NEGATIVE Urine Fentanyl Screen Neg NEGATIVE Urine Barbiturates Screen Neg NEGATIVE Urine Phencyclidine Screen Neg NEGATIVE Urine Amphetamines Screen Neg NEGATIVE Urine Benzodiazepines Screen Neg NEGATIVE Urine Cocaine Screen Neg NEGATIVE Urine Cannabinoids Screen Neg NEGATIVE Lipase 48 12-53 U/L Assessment patient's daughter at bedside according to her patient has been in and out of emergency rooms several times, had four prior ct scans, patient has recurring pain in mid abdomen and on examination has a distended abdomen with tenderness locatyed in the mid abdomen and left flak, ct scan reviewed, awaiting MRI s/p umbilical hernia repair * abdomen soft, non distended * wound clean , dry and intact * no flatus or BM Plan: NPO ambulate every 4 hours iting mri Plan discussed with: Patient, Other KRYSTA ROSALES MD Dec 21, 2024 10:49
[2024-12-21] MEDS: POTASSIUM CHL 20MEQ/100ML 100 ML IV ONE (13:00)
[2024-12-21 14:17] LABS: Iron 79.0 ug/dL (50-170)
[2024-12-21 14:27] LABS: Total Iron Binding Capacity 243.0 ug/dL (250-425)
[2024-12-21] MEDS: GADOTERATE MEG 7.5 MMOL/15ml INJ (0.5MMOL/ml) IV ONE (14:39)
[2024-12-21] MEDS: LORazepam 2MG/ML-1ML VIAL IV ONE ×2 (15:00→15:02)
--- NOTE | 2024-12-21 17:03 | DVH ---
CLINICAL HISTORY: 79 years old, Female; PAIN. TECHNIQUE: Multi sequence multi planar MRI images of the abdomen and pelvis were obtained prior to a nd after the uneventful administration of 15 mL Clariscan contrast. COMPARISON: CT of the abdomen and pelvis dated 12/20/2024. FINDINGS: Motion artifact limits evaluation, particularly on the postcontrast images. Given this brink itation, the liver, spleen, and adrenal glands appear unremarkable. The pancreas appears moderately a trophic. There is no hydronephrosis. Tiny T2 hyperintense foci in both kidneys, possibly small cysts, but not well characterized due to their small size, and not well correlated on recent CT exam. Small subcentimeter T2 hypointense focus in the upper pole of the left kidney is not well evaluated due to its small size and motion artifact. The gallbladder is surgically absent. Common bile duct measures up to 1.2 cm in diameter, which is dilated, but may be seen after cholecystectomy due to reservoir ef fect. T2 hyperintense mass in the right hemipelvis, likely arising from the right ovary, measures up to 8.1 cm in greatest dimension. No associated postcontrast enhancement demonstrated. Uterus is antev erted. Bladder appears grossly unremarkable. No dilated small bowel loops to suggest small bowel obst ruction. Scattered colonic diverticula are seen. No free fluid visualized in the abdomen or pelvis. I ncidental note is made of moderate cardiomegaly. IMPRESSION: 1. Very limited examination due to extensive motion artifact, particularly on the postcontrast images . 2. T2 hyperintense structure in the right hemipelvis, for which ovarian cystic neoplasm can not be ex cluded. No solid enhancing component is demonstrated on this exam. 3. Postsurgical changes of prior cholecystectomy. Common bile duct is mildly dilated, although may be seen after cholecystectomy due to reservoir effect. 4. Additional findings as described above.
[2024-12-21] MEDS ORDERED: RIVAROXABAN 20 MG TAB PO SCH (18:00)
--- NOTE | 2024-12-21 18:40 | DVHPN2 ---
Assessment/Plan Assessment/Plan Subjective 79 yo F with DJD, osteoarthritis, HTN, katrina encephalitis, COPD group E, NIDDM, and fitness insufficiency admitted for abdominal pain and distention for 2 weeks. Abdominal symptoms have progressively worsened over the past several days. She describes experiencing bloating, abdominal fullness, and pain rated as 10/10. Pain is exacerbated by walking and movement, as well as eating. Associated symptoms include nausea, but denies vomiting, fever, or chills. Reports unintentional weight loss of 23 pounds over the past several months. Last bowel movement was on , denies any blood in the stool or melena. History of multiple hospitalizations for similar symptoms. Current medication regimen includes rivaroxaban, which is being switched to therapeutic Lovenox in case surgery is needed. Medications and Supplements - Rivaroxaban (discontinued to switch to therapeutic Lovenox in case surgery is needed) - Cipro - Flagyl - Zofran - Morphine (for pain management) Social History - Weight: Unintentional weight loss of 23 pounds over the past several months Review of Systems - General: Positive for unintentional weight loss, denies fever, chills - Gastrointestinal: Positive for abdominal pain, distention, bloating, fullness, and nausea, denies vomiting, blood in stool, melena - Musculoskeletal: Positive for pain with walking and movement Objective Vital Signs BP 148/68 HR 70 RR 18 SPO2 96% Physical Exam AOx4 Obese PERLLA MMM Bibasilar rhonchi S1 S2 RRR Abdomen soft, non tender Trace LE edema Laboratory, Imaging, and Diagnostic Test Results A1C 7.2 Cr 1.4 Na/K/Cl 133/3.4/[address] Abdomen and Pelvis loculated fluid collection in the central abdomen Chest X-ray mild interstitial edema Assessment & Plan Possible uterine mass vs abscess Anemia Electrolyte Imbalance HTN NIDDM COPD DJD Osteoarthritis Obesity Continue IV fluids Cipro and Flagyl for potential intra-abdominal infection Zofran for nausea management Morphine for pain management Discontinue rivaroxaban and switch to therapeutic Lovenox NPO status Await MRI results Monitor hemoglobin levels Monitor electrolyte levels Continue management of chronic conditions diet NPO dvt ppx therapeutic Lovenox full code Plan discussed with: Other My Orders Orders - TOD SORTO MD Procedure Category Date Status Time Communication Order ORDERS 12/21/24 Transmitted 12:29 Enoxaparin Sodium PHA 12/21/24 In Process (Lovenox) 22:00 Date of Service: Dec 21, 2024 Billing Provider: TOD SORTO MD Common Visit Codes: [id number] INP/OBS CARE(HIGH) TOD SORTO MD Dec 21, 2024 18:40
[2024-12-21] MEDS: ENOXAPARIN SOD 100 MG/1 ML SYRINGE SC SCH (21:25)
[2024-12-22] VITALS (10 sets, daily range): BP systolic 133–182; BP diastolic 73–90; PULSE 68–96; RESP 18–20; TEMP 98–98.5; O2SAT 97–100
[2024-12-22 05:43] LABS: Nucleated Red Blood Cells % 0.1 %
[2024-12-22 05:46] LABS: Hematocrit 23.2 % (36.0-46.0); Hemoglobin 8.0 g/dL (12.2-16.2); Mean Corpuscular Hemoglobin 32.9 pg (28.0-32.0); Mean Corpuscular Volume 96.1 fL (80.0-100.0)
[2024-12-22 05:48] LABS: Chloride 100 mmol/L (98-107); Potassium 3.8 mmol/L (3.5-5.1); Sodium 137 mmol/L (136-145)
[2024-12-22 05:49] LABS: Anion Gap 13 (5-15); Carbon Dioxide 24 mmol/L (20-31)
[2024-12-22 05:50] LABS: Calcium 8.6 mg/dL (8.7-10.4)
[2024-12-22 05:54] LABS: BUN/Creatinine Ratio 10.5 (10.0-20.0); Blood Urea Nitrogen 14 mg/dL (9-23); Glucose 74 mg/dL (74-106)
--- NOTE | 2024-12-22 08:52 | DVHINCON2 ---
Date of service: Dec 22, 2024 Referring Physician Hospitalist Reason for Consultation Pelvic pain History of Present Illness History Source: Patient Home Meds Reported Medications Insulin Lispro (Human) (Humalog) 100 Unit/Ml Inj, 100 UNIT SC, INJ 12/21/24 Glipizide (Glipizide) 5 Mg Tab, 1 TAB PO DAILY, #60 TAB 3 Refills 12/21/24 Furosemide (Furosemide) 20 Mg Tab, 1 TAB PO TID, #90 TAB 1 Refill 12/21/24 Potassium Chloride (POTASSIUM CHLORIDE CR) 10 Meq Tb, 1 TAB PO DAILY, #30 TAB 5 Refills 12/21/24 [place]-3 Fatty Acids ([place]-3 Epa Fish Oil) 1,205 Mg Cap, 1205 MG PO, CAP 12/21/24 Calcium Carbonate (Calcium) 600 Mg Tab, 600 MG PO DAILY, TAB 12/21/24 Famotidine (PEPCID TABLET) 20 Mg Tb, 1 TAB PO BID, #60 TAB 5 Refills 12/21/24 Diltiazem Hcl (DILTIAZEM HCL ER) 240 Mg Cap, 1 CAP PO DAILY, #30 CAP 5 Refills 12/21/24 Benazepril Hcl (Benazepril Hcl) 40 Mg Tab, 1 TAB PO DAILY, #30 TAB 5 Refills 12/21/24 Metoprolol Succinate (Metoprolol Succinate Er) 50 Mg Tab, 1 TAB PO DAILY, #30 TAB 5 Refills 12/21/24 Chief Complaint of Abdominal/F: Abdominal pain Past Medical History Cardiac: AFIB, HTN, Other (DM) Pulmonary: COPD Smoker: No Hx (Negative) Review of Systems Constitutional: No symptom reported Ears, Nose, & Throat: No symptom reported Eyes: No symptom reported Pulmonary/Respiratory: No symptom reported Cardiovascular: No symptom reported Gastrointestinal: No symptom reported Genitourinary: No symptom reported Musculoskeletal: No symptom reported Skin: No symptom reported Psychiatric: No symptom reported Endocrine: No symptom reported Hemotologic/Lymphatic: No symptom reported H&P Exam Vital Signs Vital Signs Date Time Temp Pulse Resp B/P (MAP) Pulse Ox O2 Delivery O2 Flow Rate FiO2 12/22/24 06:35 99 Nasal Cannula 3.0 12/22/24 06:35 32 12/22/24 05:48 84 19 160/78 12/22/24 01:00 98.5 98.5 General Appeara: Well developed, Well nourished, Normal Appearance Head Exam: Normal inspection Neck Exam: Normal inspection, Non-tender, Normal alignment Eye Exam: bilateral eye Normal inspection, bilateral eye PERRL, bilateral eye EOMI Ear Exam: bilateral ear Auricle normal, bilateral ear Canal normal, bilateral ear TM normal Nasal Exam: Normal inspection Mouth: Normal Inspection Pulmonary/Respiratory: Normal inspection, Normal breath sounds, Chest non- tender, Lungs clear Cardiovascular/Chest: Normal inspection, Regular rate, Normal Rhythm Abdominal Exam: Normal bowel sounds, Soft, No tenderness, No hepatospenomegaly, No masses Rectal Exam: Deferred, Normal inspection Back Exam: Normal inspection Pelvic Exam: External exam normal (severe atrophic vaginitis), Bimanual exam normal, Speculum exam normal Wrist Exam: Normal ROM Hip exam: Normal inspection, Non-tender, Normal range of motion Legs: bilateral leg non-tender, bilateral leg normal inspection, bilateral leg normal range of motion, bilateral leg no evidence of injury Knees: bilateral knee non-tender, bilateral knee normal inspection, bilateral knee normal range of motion, bilateral knee no evidence of injury Ankle Exam: bilateral ankle Normal inspection, bilateral ankle Non-tender, bilateral ankle Normal range of motion, bilateral ankle No evidence of injury Foot: bilateral foot non-tender, bilateral foot normal inspection, bilateral foot normal range of motion, bilateral foot no evidence of injury Motor/Sensory: Positive Babinski's sign Neuro/Mental St: Alert, Oriented Appearance: Appropriate appearance, Appropriate insight Eye contact/ Speech: Cooperative, Good eye contact, Normal speech Skin Exam: Normal inspection, Normal color, Warm/dry Lymphatic: Normal inspection Labs/Xrays Labs Test 12/22/24 04:24 12/21/24 13:00 12/21/24 09:15 12/21/24 07:46 Range/Units White Blood Count 5.9 4.4-10.8 10^3/uL Red Blood Count 2.42 L 4.0-5.20 10^6/uL Hemoglobin 8.0 L 12.2-16.2 g/dL Hematocrit 23.2 L 36.0-46.0 % Mean Corpuscular Volume 96.1 80.0-100.0 fL Mean Corpuscular Hemoglobin 32.9 H 28.0-32.0 pg Mean Corpuscular Hemoglobin Concent 34.2 32.0-36.0 g/dL Red Cell Distribution Width 17.1 H 11.8-14.3 % Platelet Count 169 140-450 10^3/uL Mean Platelet Volume 9.9 6.9-10.8 fL Neutrophils (%) (Auto) 75.8 37.0-80.0 % Lymphocytes (%) (Auto) 10.5 10.0-50.0 % Monocytes (%) (Auto) 9.7 0.0-12.0 % Eosinophils (%) (Auto) 3.5 0.0-7.0 % Basophils (%) (Auto) 0.5 0.0-2.0 % Neutrophils # (Auto) 4.5 1.6-8.6 10 ^3/uL Lymphocytes # (Auto) 0.6 0.4-5.4 10 ^3/uL Monocytes # (Auto) 0.6 0-1.3 10 ^3/uL Eosinophils # (Auto) 0.2 0-0.8 10 ^3/uL Basophils # (Auto) 0 0-0.2 10 ^3/uL Nucleated Red Blood Cells 0.1 % Sodium Level 137 136-145 mmol/L Potassium Level 3.8 3.5-5.1 mmol/L Chloride Level 100 98-107 mmol/L Carbon Dioxide Level 24 20-31 mmol/L Anion Gap 13 5-15 Blood Urea Nitrogen 14 9-23 mg/dL Creatinine 1.33 H 0.550-1.02 mg/dL Glomerular Filtration Rate Calc 40 >90 mL/min BUN/Creatinine Ratio 10.5 10.0-20.0 Serum Glucose 74 74-106 mg/dL Calcium Level 8.6 L 8.7-10.4 mg/dL Iron Level 79 50-170 ug/dL Total Iron Binding Capacity 243 L 250-425 ug/dL Percent Iron Saturation 32.5 15-50 % Ferritin 39.0 10-291 ng/mL Prothrombin Time 13.9 H 9.3-11.8 sec Prothrombin Time INR 1.35 H 0.9-1.15 Activated Partial Thromboplast Time 34.5 24.5-34.5 SEC Influenza Type A Antigen Negative Negative Influenza Type B Antigen Negative Negative Test 12/21/24 07:40 12/21/24 03:47 12/20/24 22:55 12/20/24 20:26 Range/Units SARS-CoV-2 Antigen (Rapid) Negative NEGATIVE Hemoglobin A1c 7.2 H <5.7 % A1C Total Bilirubin 0.6 0.2-1.0 mg/dL Aspartate Amino Transferase (AST) 11 L 13-40 U/L Alanine Aminotransferase (ALT) < 9 7-40 U/L Alkaline Phosphatase 97 46-116 U/L Total Protein 7.8 5.7-8.2 g/dL Albumin 3.6 3.2-4.8 g/dL Lactic Acid Level 1.0 0.4-2.0 mmol/L Urine Color Light-yellow Yellow Urine Clarity Clear Clear Urine pH 6.5 5.0-9.0 Urine Specific [place] 1.009 1.001-1.035 Urine Protein 1+ H Negative Urine Ketones Negative Negative Urine Blood Negative Negative /uL Urine Nitrite Negative Negative Urine Bilirubin Negative Negative Urine Urobilinogen 2 H Negative mg/dL Urine Leukocyte Esterase 2+ Negative /uL Urine RBC 2 0 - 4 /hpf Urine Microscopic WBC 5 0-5 /HPF Urine Squamous Epithelial Cells Few <5 /hpf Urine Bacteria Few H None Seen /hpf Urine Glucose Normal Normal mg/dL Urine Opiates Screen Neg NEGATIVE Urine Fentanyl Screen Neg NEGATIVE Urine Barbiturates Screen Neg NEGATIVE Urine Phencyclidine Screen Neg NEGATIVE Urine Amphetamines Screen Neg NEGATIVE Urine Benzodiazepines Screen Neg NEGATIVE Urine Cocaine Screen Neg NEGATIVE Urine Cannabinoids Screen Neg NEGATIVE Test 12/20/24 19:59 Range/Units Lipase 48 12-53 U/L Microbiology Date/Time Source Procedure Growth Status 12/20/24 22:55 Blood Blood Culture - Preliminary NO GROWTH AFTER 24 HOURS OF INCUBATION. Resulted Assessment/Plan Admitting Diagnosis: Pelvic pain , Severe Atrophic vaginitis Plan discussed with: Patient JANETT FREEMAN DO Dec 22, 2024 08:52
--- NOTE | 2024-12-22 10:26 | DVH ---
INDICATION: PAIN TECHNIQUE: Multiple real-time grayscale transabdominal sonographic images along with color and duplex Doppler of the uterus and ovaries were obtained. COMPARISON: None FINDINGS: The uterus measures 5.5 x 2.4 x 3.1 cm. Uterus is heterogenous. Echogenic structures noted within the body of the uterus measuring 0.3 x 0.3 x 0.5 cm. Fluid within the cul-de-sac. The right ovary measures 7.2 x 7.9 x 6.7 cm. A simple cyst measuring 6.4 x 5.5 x 8.2 cm noted. The left ovary is not well visualized. Subsequent color and duplex Doppler interrogation of the ovaries demonstrated normal vascular flow to the right ovary, though this does not exclude the possibility of torsion due to the dual blood supp ly. IMPRESSION: 1. Heterogeneous uterus with a 0.5 cm echogenic structure in the uterine body. 2. 8.2 cm right ovarian cyst. 3. Nonvisualized left ovary.
--- NOTE | 2024-12-22 11:23 | DVHPN2 ---
Progress Note Date Seen: Dec 22, 2024 Medical Necessity Reason Pt with a Central, PICC or Fol: No Objective vital signs Vital Sign Date Time Temp Pulse Resp B/P (MAP) Pulse Ox O2 Delivery O2 Flow Rate FiO2 12/22/24 09:00 98.1 82 20 153/73 (99) 100 98.1 12/22/24 06:35 Nasal Cannula 3.0 12/22/24 06:35 32 Total Intake and Output 12/21/24 12/21/24 12/22/24 15:00 23:00 07:00 Intake Total 700 ml 1050 ml Output Total 950 ml Balance 700 ml 100 ml medications Current Medications Medications Dose Ordered Sig/Juan Francisco Route Start Time Stop Time Status Last Admin Dose Admin Ondansetron HCl 4 mg Q4HP PRN IV 12/21/24 03:00 12/21/24 04:54 4 MG Morphine Sulfate 2 mg Q4HPRN PRN IV 12/21/24 03:00 12/22/24 05:18 2 MG Lactated Ringer's 1,000 ml @ 75 mls/hr [id number] IV 12/21/24 07:00 12/21/24 21:11 75 MLS/HR Pantoprazole Sodium 40 mg DAILY IV 12/21/24 10:00 UNV Ceftriaxone Sodium 50 ml @ 100 mls/hr DAILY@09 IV 12/22/24 09:00 12/22/24 09:40 100 MLS/HR Metronidazole 100 ml @ 100 mls/hr Q8H IV 12/21/24 19:00 12/22/24 03:01 100 MLS/HR Albuterol 2.5 mg Q6HPRN PRN NEB 12/21/24 09:45 Pantoprazole Sodium 40 mg DAILY IV 12/21/24 10:00 12/22/24 09:39 40 MG Enoxaparin Sodium 90 mg Q12HR SC 12/21/24 22:00 12/22/24 09:39 90 MG laboratory and microbiology Laboratory Tests 12/22/24 04:24 Test 12/22/24 04:24 Range/Units Serum Glucose 74 74-106 mg/dL Problem List/Assessment/Plan Problem List/Assessment/Plan 12/22/24 pain resoled, no nausea, abdomen remains slightly tender in mid abdomen and left flank, MRI shows cystic mass in the right ovary(left ovary not visualized), ultrasound confirms 8 cm cyst in the right ovary, defer to ENERGY RATER opinion, nop emergency surgical intervention needed. Plan discussed with: Patient, Son KRYSTA ROSALES MD Dec 22, 2024 11:23
--- NOTE | 2024-12-22 14:50 | DVHPN2 ---
Assessment/Plan Assessment/Plan Subjective 79 yo F with DJD, osteoarthritis, HTN, katrina encephalitis, COPD group E, NIDDM, and fitness insufficiency admitted for abdominal pain and distention for 2 weeks. Abdominal symptoms have progressively worsened over the past several days. She describes experiencing bloating, abdominal fullness, and pain rated as 10/10. Pain is exacerbated by walking and movement, as well as eating. Associated symptoms include nausea, but denies vomiting, fever, or chills. Reports unintentional weight loss of 23 pounds over the past several months. Last bowel movement was on , denies any blood in the stool or melena. History of multiple hospitalizations for similar symptoms. Current medication regimen includes rivaroxaban, which is being switched to therapeutic Lovenox in case surgery is needed. seen today, seen by automation engineering technician and surg. sent markers, no surg intervention by surg. pending automation engineering technician recs. pain improved. wean off o2. possible ROSA Medications and Supplements - Rivaroxaban (discontinued to switch to therapeutic Lovenox in case surgery is needed) - Cipro - Flagyl - Zofran - Morphine (for pain management) Social History - Weight: Unintentional weight loss of 23 pounds over the past several months Review of Systems - General: Positive for unintentional weight loss, denies fever, chills - Gastrointestinal: Positive for abdominal pain, distention, bloating, fullness, and nausea, denies vomiting, blood in stool, melena - Musculoskeletal: Positive for pain with walking and movement Objective Vital Signs BP 148/68 HR 70 RR 18 SPO2 96% Physical Exam AOx4 Obese PERLLA MMM Bibasilar rhonchi S1 S2 RRR Abdomen soft, non tender Trace LE edema Laboratory, Imaging, and Diagnostic Test Results A1C 7.2 Cr 1.4 Na/K/Cl 133/3.4/[address] Abdomen and Pelvis loculated fluid collection in the central abdomen Chest X-ray mild interstitial edema Assessment & Plan Possible uterine mass vs abscess Anemia Electrolyte Imbalance HTN NIDDM COPD DJD Osteoarthritis Obesity ROSA/OHS? Continue IV fluids Cipro and Flagyl for potential intra-abdominal infection Zofran for nausea management Morphine for pain management Discontinue rivaroxaban and switch to therapeutic Lovenox NPO status Await MRI results Monitor hemoglobin levels Monitor electrolyte levels Continue management of chronic conditions wean o2 maintan spo2 >88 diet fuill liq dvt ppx therapeutic Lovenox full code Plan discussed with: Patient, Son Date of Service: Dec 22, 2024 Billing Provider: TOD SORTO MD Common Visit Codes: [id number] INP/OBS CARE(HIGH) TOD SORTO MD Dec 22, 2024 14:50
[2024-12-23] VITALS (8 sets, daily range): BP systolic 138–180; BP diastolic 62–90; PULSE 86–110; RESP 18–20; TEMP 96.9–98.6; O2SAT 96–99
--- NOTE | 2024-12-23 08:24 | DVHPN2 ---
Progress Note Date Seen: Dec 23, 2024 Medical Necessity Reason Pt with a Central, PICC or Fol: No Objective vital signs Vital Sign Date Time Temp Pulse Resp B/P (MAP) Pulse Ox O2 Delivery O2 Flow Rate FiO2 12/23/24 05:00 98.0 102 18 167/90 (115) 99 98.0 12/22/24 20:00 Nasal Cannula* 3 32 Total Intake and Output 12/22/24 12/22/24 12/23/24 15:00 23:00 07:00 Intake Total 150 ml 912 ml 1600 ml Balance 150 ml 912 ml 1600 ml medications Current Medications Medications Dose Ordered Sig/Juan Francisco Route Start Time Stop Time Status Last Admin Dose Admin Ondansetron HCl 4 mg Q4HP PRN IV 12/21/24 03:00 12/21/24 04:54 4 MG Morphine Sulfate 2 mg Q4HPRN PRN IV 12/21/24 03:00 12/22/24 05:18 2 MG Lactated Ringer's 1,000 ml @ 75 mls/hr [id number] IV 12/21/24 07:00 12/23/24 03:52 75 MLS/HR Pantoprazole Sodium 40 mg DAILY IV 12/21/24 10:00 UNV Ceftriaxone Sodium 50 ml @ 100 mls/hr DAILY@09 IV 12/22/24 09:00 12/22/24 09:40 100 MLS/HR Metronidazole 100 ml @ 100 mls/hr Q8H IV 12/21/24 19:00 12/23/24 03:51 100 MLS/HR Albuterol 2.5 mg Q6HPRN PRN NEB 12/21/24 09:45 Cancel Pantoprazole Sodium 40 mg DAILY IV 12/21/24 10:00 12/22/24 09:39 40 MG Enoxaparin Sodium 90 mg Q12HR SC 12/21/24 22:00 12/22/24 22:41 90 MG laboratory and microbiology Laboratory Tests 12/22/24 04:24 Test 12/22/24 04:24 Range/Units Serum Glucose 74 74-106 mg/dL Problem List/Assessment/Plan Problem List/Assessment/Plan 12/22/24 pain resoled, no nausea, abdomen remains slightly tender in mid abdomen and left flank, MRI shows cystic mass in the right ovary(left ovary not visualized), ultrasound confirms 8 cm cyst in the right ovary, defer to [employer] opinion, nop emergency surgical intervention needed. explained to patient that there is a cystic mass in her right ovary and that per verbal communication with [employer] surgewon she should be transferred to higher level of care Plan discussed with: Patient, Other KRYSTA ROSALES MD Dec 23, 2024 08:24
--- NOTE | 2024-12-23 14:28 | DVHPN2 ---
Assessment/Plan Assessment/Plan Subjective 79 yo F with DJD, osteoarthritis, HTN, katrina encephalitis, COPD group E, NIDDM, and fitness insufficiency admitted for abdominal pain and distention for 2 weeks. Abdominal symptoms have progressively worsened over the past several days. She describes experiencing bloating, abdominal fullness, and pain rated as 10/10. Pain is exacerbated by walking and movement, as well as eating. Associated symptoms include nausea, but denies vomiting, fever, or chills. Reports unintentional weight loss of 23 pounds over the past several months. Last bowel movement was on , denies any blood in the stool or melena. History of multiple hospitalizations for similar symptoms. Current medication regimen includes rivaroxaban, which is being switched to therapeutic Lovenox in case surgery is needed. seen today, discussed with obgyn, patient will need HLOC. accepting gynonc dr amador in [facility]. will get ss for HLOC. Medications and Supplements - Rivaroxaban (discontinued to switch to therapeutic Lovenox in case surgery is needed) - Cipro - Flagyl - Zofran - Morphine (for pain management) Social History - Weight: Unintentional weight loss of 23 pounds over the past several months Review of Systems - General: Positive for unintentional weight loss, denies fever, chills - Gastrointestinal: Positive for abdominal pain, distention, bloating, fullness, and nausea, denies vomiting, blood in stool, melena - Musculoskeletal: Positive for pain with walking and movement Objective Vital Signs BP 148/68 HR 70 RR 18 SPO2 96% Physical Exam AOx4 Obese PERLLA MMM Bibasilar rhonchi S1 S2 RRR Abdomen soft, non tender Trace LE edema Laboratory, Imaging, and Diagnostic Test Results A1C 7.2 Cr 1.4 Na/K/Cl 133/3.4/[address] Abdomen and Pelvis loculated fluid collection in the central abdomen Chest X-ray mild interstitial edema Assessment & Plan Possible uterine mass vs abscess Anemia Electrolyte Imbalance HTN NIDDM COPD DJD Osteoarthritis Obesity ROSA/OHS? Continue IV fluids Cipro and Flagyl for potential intra-abdominal infection Zofran for nausea management Morphine for pain management Discontinue rivaroxaban and switch to therapeutic Lovenox NPO status Await MRI results Monitor hemoglobin levels Monitor electrolyte levels Continue management of chronic conditions wean o2 maintan spo2 >88 diet fuill liq dvt ppx therapeutic Lovenox full code Plan discussed with: Patient My Orders Orders - TOD SORTO MD Procedure Category Date Status Time Respiratory Misc. RT 12/22/24 Transmitted Order 14:50 * Auto Polisher CONS 12/23/24 Transmitted Consult Date of Service: Dec 23, 2024 Billing Provider: TOD SORTO MD Common Visit Codes: [id number] INP/OBS CARE(HIGH) TOD SORTO MD Dec 23, 2024 14:27
[2024-12-24 05:00] VITALS: BP 167/84; PULSE 93; RESP 18; TEMP 97.2; O2SAT 94
[2024-12-24 06:34] VITALS: BP 119/90
[2024-12-24 08:00] VITALS: PULSE 146; PULSE 152
[2024-12-24 08:43] VITALS: PULSE 152
[2024-12-24 08:54] VITALS: BP 168/77; PULSE 105; RESP 20; TEMP 98.2; O2SAT 91
[2024-12-24] MEDS: dilTIAZem 120MG ER CAP PO SCH (09:16)
[2024-12-24] MEDS: METOPROLOL SUCCINATE XL 50 MG TAB PO SCH (09:17)
[2024-12-24] MEDS ORDERED: HYDR1TAB97 PO (11:15)
--- NOTE | 2024-12-24 11:23 | DVHDS2 ---
Discharge Summary Date of Admission Dec 21, 2024 at 02:54 Date of Discharge: Dec 24, 2024 Labs/Diagnostic Data: Laboratory Results Test 12/22/24 11:11 12/22/24 04:24 12/21/24 13:00 12/21/24 09:15 CA 19-9 Antigen <2 U/mL (0-35) White Blood Count 5.9 10^3/uL (4.4-10.8) Red Blood Count 2.42 10^6/uL (4.0-5.20) Hemoglobin 8.0 g/dL (12.2-16.2) Hematocrit 23.2 % (36.0-46.0) Mean Corpuscular Volume 96.1 fL (80.0-100.0) Mean Corpuscular Hemoglobin 32.9 pg (28.0-32.0) Mean Corpuscular Hemoglobin Concent 34.2 g/dL (32.0-36.0) Red Cell Distribution Width 17.1 % (11.8-14.3) Platelet Count 169 10^3/uL (140-450) Mean Platelet Volume 9.9 fL (6.9-10.8) Neutrophils (%) (Auto) 75.8 % (37.0-80.0) Lymphocytes (%) (Auto) 10.5 % (10.0-50.0) Monocytes (%) (Auto) 9.7 % (0.0-12.0) Eosinophils (%) (Auto) 3.5 % (0.0-7.0) Basophils (%) (Auto) 0.5 % (0.0-2.0) Neutrophils # (Auto) 4.5 10 ^3/uL (1.6-8.6) Lymphocytes # (Auto) 0.6 10 ^3/uL (0.4-5.4) Monocytes # (Auto) 0.6 10 ^3/uL (0-1.3) Eosinophils # (Auto) 0.2 10 ^3/uL (0-0.8) Basophils # (Auto) 0 10 ^3/uL (0-0.2) Nucleated Red Blood Cells 0.1 % Sodium Level 137 mmol/L (136-145) Potassium Level 3.8 mmol/L (3.5-5.1) Chloride Level 100 mmol/L (98-107) Carbon Dioxide Level 24 mmol/L (20-31) Anion Gap 13 (5-15) Blood Urea Nitrogen 14 mg/dL (9-23) Creatinine 1.33 mg/dL (0.550-1.02) Glomerular Filtration Rate Calc 40 mL/min (>90) BUN/Creatinine Ratio 10.5 (10.0-20.0) Serum Glucose 74 mg/dL (74-106) Calcium Level 8.6 mg/dL (8.7-10.4) Carcinoembryonic Antigen < 0.50 ng/mL (<=5.0) Beta HCG, Quantitative 1.7 mIU/mL (1.5-4.2) Iron Level 79 ug/dL (50-170) Total Iron Binding Capacity 243 ug/dL (250-425) Percent Iron Saturation 32.5 % (15-50) Ferritin 39.0 ng/mL (10-291) CA 125 Antigen 31.3 U/mL (0.0-38.1) Prothrombin Time 13.9 sec (9.3-11.8) Prothrombin Time INR 1.35 (0.9-1.15) Activated Partial Thromboplast Time 34.5 SEC (24.5-34.5) Test 12/21/24 07:46 12/21/24 07:40 12/21/24 03:47 12/20/24 22:55 Influenza Type A Antigen Negative (Negative) Influenza Type B Antigen Negative (Negative) SARS-CoV-2 Antigen (Rapid) Negative (NEGATIVE) Hemoglobin A1c 7.2 % A1C (<5.7) Total Bilirubin 0.6 mg/dL (0.2-1.0) Aspartate Amino Transferase (AST) 11 U/L (13-40) Alanine Aminotransferase (ALT) < 9 U/L (7-40) Alkaline Phosphatase 97 U/L (46-116) Total Protein 7.8 g/dL (5.7-8.2) Albumin 3.6 g/dL (3.2-4.8) Lactic Acid Level 1.0 mmol/L (0.4-2.0) Test 12/20/24 20:26 12/20/24 19:59 Urine Color Light-yellow (Yellow) Urine Clarity Clear (Clear) Urine pH 6.5 (5.0-9.0) Urine Specific [place] 1.009 (1.001-1.035) Urine Protein 1+ (Negative) Urine Ketones Negative (Negative) Urine Blood Negative /uL (Negative) Urine Nitrite Negative (Negative) Urine Bilirubin Negative (Negative) Urine Urobilinogen 2 mg/dL (Negative) Urine Leukocyte Esterase 2+ /uL (Negative) Urine RBC 2 /hpf (0 - 4) Urine Microscopic WBC 5 /HPF (0-5) Urine Squamous Epithelial Cells Few /hpf (<5) Urine Bacteria Few /hpf (None Seen) Urine Glucose Normal mg/dL (Normal) Urine Opiates Screen Neg (NEGATIVE) Urine Fentanyl Screen Neg (NEGATIVE) Urine Barbiturates Screen Neg (NEGATIVE) Urine Phencyclidine Screen Neg (NEGATIVE) Urine Amphetamines Screen Neg (NEGATIVE) Urine Benzodiazepines Screen Neg (NEGATIVE) Urine Cocaine Screen Neg (NEGATIVE) Urine Cannabinoids Screen Neg (NEGATIVE) Lipase 48 U/L (12-53) Other Laboratory Tests 12/22/24 04:24 Brief Hx & Hospital Course: 79 yo F with DJD, osteoarthritis, HTN, katrina encephalitis, COPD group E, NIDDM, and fitness insufficiency admitted for abdominal pain and distention for 2 weeks. Abdominal symptoms have progressively worsened over the past several days. She describes experiencing bloating, abdominal fullness, and pain rated as 10/10. Pain is exacerbated by walking and movement, as well as eating. Associated symptoms include nausea, but denies vomiting, fever, or chills. Reports unintentional weight loss of 23 pounds over the past several months. Last bowel movement was on , denies any blood in the stool or melena. History of multiple hospitalizations for similar symptoms. Current medication regimen includes rivaroxaban, which is being switched to therapeutic Lovenox in case surgery is needed. seen by surg and OB. plan initialy for HLOC transfer, however family preference to not be transfered to [facility]. discussed with family and was informed that they have an appointment with [facility] monday and would like to make that appointment. gas checked and pt dc with home o2. will follow up with [facility] for ovarian malignancy concern. discussion with family and both daughter and son agrees with plan and understood need for follow up as there is a high concern of malignancy. Condition at Discharge: Stable Final Diagnosis/Problems List ovarian complex cyst vs mass vs malignancy interactible pain acute on chronic hypoxic rf hypokalemia resolved ckd 3a Anemia likely chronic disease HTN NIDDM controlled COPD group e now on home o2 DJD Osteoarthritis Obesity ROSA/OHS? Discharge Disposition: Home Discharge Instruct/Medications Diet: Cardiac 2g Na,low cholest Activity: No Restrictions, As Tolerated Follow Up/Referral: apt with [facility] 12/27/24 Medications: norco Scheduled Benazepril Hcl (Benazepril Hcl), 1 TAB PO DAILY, (Reported) Calcium Carbonate (Calcium), 600 MG PO DAILY, (Reported) Diltiazem Hcl (Diltiazem Hcl Er), 1 CAP PO DAILY, (Reported) Famotidine (Pepcid Tablet), 1 TAB PO BID, (Reported) Furosemide (Furosemide), 1 TAB PO TID, (Reported) Glipizide (Glipizide), 1 TAB PO DAILY, (Reported) Metoprolol Succinate (Metoprolol Succinate Er), 1 TAB PO DAILY, (Reported) Potassium Chloride (Potassium Chloride Cr), 1 TAB PO DAILY, (Reported) Scheduled PRN Hydrocodone-Acetaminophen (Hydrocodone/Acetaminophen 5-325 mg), 2 TAB PO Q8HP PRN Miscellaneous Medications Insulin Lispro (Human) (Humalog), 100 UNIT SC, (Reported) Pillow-3 Fatty Acids (Pillow-3 Epa Fish Oil), 1,205 MG PO, (Reported) Discharge Statement: "Patient was advised to return to the ER or call 911 if any headaches, dizziness, shortness of breath, chest pain, abdominal pain, bleeding, fevers, or worsening of medical condition. Patient was counseled about treatment plan, medications, possible side effects, patientverbalized understanding. All questions were answered to the best of my ability. This discharge took greater then 30 minutes in planning, reviewing documentation, counseling the patient, and discussing with other team members." ASSESSMENT ASSESSMENT Assessment ovarian complex cyst vs mass vs malignancy interactible pain chronic hypoxic rf Anemia likely chronic disease HTN NIDDM controlled COPD group B DJD Osteoarthritis Obesity ROSA/OHS? Date of Service: Dec 24, 2024 Billing Provider: TOD SORTO MD Common Visit Codes: [id number] DISCH DAY >30min TOD SORTO MD Dec 24, 2024 11:23
[2024-12-24 12:06] VITALS: BP 152/83; PULSE 74; RESP 20; TEMP 98.9; O2SAT 82
[2024-12-24 12:52] LABS: Base Excess -0.6 mmol/L (-2.0-3.0)
[2024-12-24] MEDS: FUROSEMIDE 40 MG/4 ML VIAL IV ONE (14:48)
--- NOTE | 2024-12-24 15:14 | DVHPN2 ---
Assessment/Plan Assessment/Plan Subjective 79 yo F with DJD, osteoarthritis, HTN, katrina encephalitis, COPD group E, NIDDM, and fitness insufficiency admitted for abdominal pain and distention for 2 weeks. Abdominal symptoms have progressively worsened over the past several days. She describes experiencing bloating, abdominal fullness, and pain rated as 10/10. Pain is exacerbated by walking and movement, as well as eating. Associated symptoms include nausea, but denies vomiting, fever, or chills. Reports unintentional weight loss of 23 pounds over the past several months. Last bowel movement was on , denies any blood in the stool or melena. History of multiple hospitalizations for similar symptoms. Current medication regimen includes rivaroxaban, which is being switched to therapeutic Lovenox in case surgery is needed. seen today, discussed with obgyn, patient will go to follow up monday. pending home o2. Medications and Supplements - Rivaroxaban (discontinued to switch to therapeutic Lovenox in case surgery is needed) - Cipro - Flagyl - Zofran - Morphine (for pain management) Social History - Weight: Unintentional weight loss of 23 pounds over the past several months Review of Systems - General: Positive for unintentional weight loss, denies fever, chills - Gastrointestinal: Positive for abdominal pain, distention, bloating, fullness, and nausea, denies vomiting, blood in stool, melena - Musculoskeletal: Positive for pain with walking and movement Objective Vital Signs BP 148/68 HR 70 RR 18 SPO2 96% Physical Exam AOx4 Obese PERLLA MMM Bibasilar rhonchi S1 S2 RRR Abdomen soft, non tender Trace LE edema Laboratory, Imaging, and Diagnostic Test Results A1C 7.2 Cr 1.4 Na/K/Cl 133/3.4/[address] Abdomen and Pelvis loculated fluid collection in the central abdomen Chest X-ray mild interstitial edema Assessment & Plan ovarian complex cyst vs mass vs malignancy interactible pain chronic hypoxic rf hypokalemia resolved ckd 3a Anemia likely chronic disease HTN NIDDM controlled COPD group B DJD Osteoarthritis Obesity ROSA/OHS? Continue IV fluids Cipro and Flagyl for potential intra-abdominal infection Zofran for nausea management Morphine for pain management Discontinue rivaroxaban and switch to therapeutic Lovenox NPO status Await MRI results Monitor hemoglobin levels Monitor electrolyte levels Continue management of chronic conditions wean o2 maintan spo2 >88 diet galen ortizq dvt ppx therapeutic Lovenox full code Plan discussed with: Patient, Daughter My Orders Orders - TOD SOTRO MD Procedure Category Date Status Time Metoprolol Xl PHA 12/24/24 In Process Succinate (Toprol Xl) 10:00 Diltiazem Er Capsule PHA 12/24/24 In Process (Cardizem Er Capsul 10:00 Abg W/ Co-Ox RT 12/24/24 Logged 12:04 * Assistant Research Scientist CONS 12/24/24 Transmitted Consult Furosemide Tablet PHA 12/24/24 In Process (Lasix Tablet) 18:00 Date of Service: Dec 24, 2024 Billing Provider: TOD SORTO MD Common Visit Codes: [id number] INP/OBS CARE(HIGH) TOD SORTO MD Dec 24, 2024 15:14
[2024-12-24] MEDS ORDERED: FUROSEMIDE 20 MG TAB PO SCH (18:00)
== END 2024-12-24 17:14 | disposition home or self-care (01) | DRG 760 ==
LOC: ER 19:07 → EDBD 12-21 02:54 → OVERFLOW 12-21 02:54 → TELE-WESTW 12-21 10:21
PROVIDERS: ADMIT Student in an Organized Health Care Education/Training Program; ATTEND Student in an Organized Health Care Education/Training Program
DX: N83.291 Other ovarian cyst, right side (principal); G04.90 Encephalitis and encephalomyelitis, unspecified; J96.21 Acute and chronic respiratory failure with hypoxia; N17.0 Acute kidney failure with tubular necrosis; N39.0 Urinary tract infection, site not specified; E87.1 Hypo-osmolality and hyponatremia; D68.69 Other thrombophilia; N17.9 Acute kidney failure, unspecified; C56.1 Malignant neoplasm of right ovary; D63.8 Anemia in other chronic diseases classified elsewhere; N95.2 Postmenopausal atrophic vaginitis; E66.9 Obesity, unspecified; E11.22 Type 2 diabetes mellitus with diabetic chronic kidney disease; N18.31 Chronic kidney disease, stage 3a; I12.9 Hypertensive chronic kidney disease with stage 1 through stage 4 chronic kidney disease, or unspecified chronic kidney disease; J44.89 Other specified chronic obstructive pulmonary disease; Z68.35 Body mass index [BMI] 35.0-35.9, adult; Z20.822 Contact with and (suspected) exposure to COVID-19; I88.0 Nonspecific mesenteric lymphadenitis; I48.91 Unspecified atrial fibrillation; E87.6 Hypokalemia; E86.1 Hypovolemia; G89.29 Other chronic pain; Z85.3 Personal history of malignant neoplasm of breast; G47.33 Obstructive sleep apnea (adult) (pediatric); Z99.81 Dependence on supplemental oxygen; Z79.899 Other long term (current) drug therapy; Z87.891 Personal history of nicotine dependence; Z86.61 Personal history of infections of the central nervous system; Z79.84 Long term (current) use of oral hypoglycemic drugs; Z79.4 Long term (current) use of insulin; Z79.01 Long term (current) use of anticoagulants
CPT/HCPCS: 36415; 36600; 71045; 72195; 74176; 74181; 76830; 76856; 80048; 80053; 80307; 81001; 82378; 82728; 82805; 83036; 83540; 83550; 83605; 83690; 84702; 85025; 85610; 85730; 86301; 86304; 87040; 87081; 87086; 87426; 87804; 96361; 96374; G0378; J2405; J2470; J3480; J3490